=== PATIENT | female | born 1945 | race Caucasian/White ===

== ENCOUNTER 2018-01-09 09:34 | Emergency (ER) | payer MEDICARE ==
[~2018-01-09] VITALS: Ht 170.2 cm; Wt 98.0 kg
[2018-01-09 09:42] VITALS: BP 185/89; PULSE 59; RESP 19; TEMP 98.1; O2SAT 98
[2018-01-09] MEDS ORDERED: SODIUM CHLOR 0.9% 1000 ML INJ 1,000 ML IV SCH (09:54)
[2018-01-09] MEDS ORDERED: AMBI10TA PO (09:57)
[2018-01-09] MEDS ORDERED: TRAZ50TA12 PO (09:57)
[2018-01-09] MEDS ORDERED: ONDANSETRON HCL 4 MG/2 ML VIAL IVP ONE (10:00)
[2018-01-09] MEDS ORDERED: FAMOTIDINE 20 MG/2 ML VIAL IV PUSH ONE (10:00)
[2018-01-09] MEDS ORDERED: SODIUM CHLORIDE 0.9% FLUSH 10 ML FLUSH IV FLUSH PRN (10:00)
--- NOTE | 2018-01-09 10:03 | PD ---
HPI Chief Complaint: Cold / Flu Symptoms Time Seen by Provider: 09:45 Travel History International Travel<30 days: No Contact w/Intl Traveler<30days: No Traveled to known affect area: No History of Present Illness HPI 72-year-old female here from [place] with her since November, presents to the emergency department with 3 week history of generalized malaise , dry hacking cough, nausea, and intermittent vomiting. 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 Patient states the last time she had an endoscopy was approximately 1 year ago. Patient does not have her gallbladder or appendix. Patient states gastroparesis history, and history of pernicious anemia. Patient takes B12 shots, something to expedite stomach emptying, and frequent MiraLAX. Patient denies constipation or diarrhea with her current illness. Patient denies urinary symptoms. Patient denies chest pain or shortness of breath other than her cough. Patient states no significant fever but does feel clammy and has chills intermittently. Patient states it seemed to start with a viral illness which seemed to improve but now has worsened in the last week. Patient has generalized aches and pains but no specific point tenderness. She has no known drug allergies. PFSH Past Medical History Anemia: Yes Cancer: Yes (SKIN ) Hypertension: Yes ?: Not Past Surgical History Appendectomy: Yes Section: Yes (x2) Cholecystectomy: Yes Tonsillectomy: Yes Social History Alcohol Use: No Tobacco Use: No Substance Use: No Allergies-Medications (Allergen,Severity, Reaction): Coded Allergies: No Known Allergies (Unverified , 01/09/18) Reported Meds & Prescriptions Reported Meds & Active Scripts Active Reported Trazodone (Trazodone HCl) 50 Mg Tab 50 Mg PO HS Ambien (Zolpidem Tartrate) 10 Mg Tab 10 Mg PO HS PRN Review of Systems Except as stated in HPI: all other systems reviewed are Neg General / Constitutional: Positive: Chills, No: Fever Eyes: No: Visual changes HENT: No: Headaches Cardiovascular: No: Chest Pain or Discomfort, Palpitations, Irregular Rhythm, Tachycardia, Diaphoresis, Syncope, Dyspnea on exertion, Varicosities, Edema, Varicosities, Phlebitis, Claudication Respiratory: Positive: Cough, No: Shortness of Breath, Wheezing, Sneezing, Orthopnea, Hemoptysis, Night Sweats, Pleuritic Pain Gastrointestinal: Positive: Nausea, Vomiting, Loss of Appetite, No: Diarrhea, Abdominal Pain, Hematemesis, Hematochezia, Constipation, Changes in Bowel Habits , Indigestion, Dysphagia Genitourinary: No: Urgency, Frequency, Dysuria, Pelvic Pain, Flank Pain, Discharge Musculoskeletal: Positive: Myalgias, No: Arthralgias, Limited ROM, Pain Skin: No Rash Neurologic: No: Weakness Psychiatric: No: Depression Endocrine: No: Polydipsia Hematologic/Lymphatic: No: Easy Bruising Physical Exam Narrative GENERAL: Patient appears ill but not septic SKIN: Warm and mildly diaphoretic. Decreased pallor. Mild decreased turgor. HEAD: Atraumatic. Normocephalic. EYES: Pupils equal and round. No scleral icterus. No injection or drainage. ENT: No nasal bleeding or discharge. Mucous membranes pink and moist. Posterior pharynx is unremarkable. TMs are clear. Airways patent NECK: Trachea midline. Supple and nontender. CARDIOVASCULAR: Regular rate and rhythm. No murmurs gallops or rubs RESPIRATORY: No accessory muscle use. Course to auscultation. No wheezing rales or rhonchi. Breath sounds equal bilaterally. GASTROINTESTINAL: Abdomen soft, non-tender, nondistended. Hepatic and splenic margins not palpable. MUSCULOSKELETAL: Extremities without clubbing, cyanosis, or edema. No obvious deformities. NEUROLOGICAL: Awake and alert. No obvious cranial nerve deficits. Motor grossly within normal limits. Five out of 5 muscle strength in the arms and legs. Normal speech. PSYCHIATRIC: Appropriate mood and affect; insight and judgment normal. Data Data Last Documented VS Vital Signs Date Time Temp Pulse Resp B/P (MAP) Pulse Ox O2 Delivery O2 Flow Rate FiO2 01/09/18 10:09 97 Room Air 01/09/18 09:42 98.1 59 19 185/89 (121) Orders Orders Complete Blood Count With Diff (01/09/18 09:54) Comprehensive Metabolic Panel (01/09/18 09:54) Lipase (01/09/18 09:54) Lactic Acid (01/09/18 09:54) Prothrombin Time / Inr (Pt) (01/09/18:54) Act Partial Throm Time (Ptt) (01/09/18 09:54) Urinalysis - C+S If Indicated (01/09/18 09:54) Ct Abd/Pel W Iv Contrast(Rout) (01/09/18 09:54) Iv Access Insert/Monitor (01/09/18 09:54) Ecg Monitoring (01/09/18 09:54) Oximetry (01/09/18 09:54) Ondansetron Inj (Zofran Inj) (01/09/18 10:00) Sodium Chlor 0.9% 1000 Ml Inj (Ns 1000 M (01/09/18 09:54) Sodium Chloride 0.9% Flush (Ns Flush) (01/09/18 10:00) Electrocardiogram (01/09/18 09:54) Famotidine Inj (Pepcid Inj) (01/09/18 10:00) Thyroid Stimulating Hormone (01/09/18 09:54) Chest, Pa & Lat (01/09/18 10:36) Iohexol 350 Inj (Omnipaque 350 Inj) (01/09/18 11:22) Prednisone (Deltasone) (01/09/18 12:15) Albuterol-Ipratropium Neb (Duoneb Neb) (01/09/18 12:15) Azithromycin (Zithromax) (01/09/18 12:15) Ceftriaxone Inj (Rocephin Inj) (01/09/18 12:15) Azithromycin (Zithromax) (01/09/18 13:00) Labs Laboratory Tests Test 01/09/18 10:20 White Blood Count 7.8 TH/MM3 Red Blood Count 4.64 MIL/MM3 Hemoglobin 14.4 GM/DL Hematocrit 41.8 % Mean Corpuscular Volume 90.1 FL Mean Corpuscular Hemoglobin 31.1 PG Mean Corpuscular Hemoglobin Concent 34.5 % Red Cell Distribution Width 13.0 % Platelet Count 279 TH/MM3 Mean Platelet Volume 8.0 FL Neutrophils (%) (Auto) 54.3 % Lymphocytes (%) (Auto) 31.6 % Monocytes (%) (Auto) 9.8 % Eosinophils (%) (Auto) 4.0 % Basophils (%) (Auto) 0.3 % Neutrophils # (Auto) 4.2 TH/MM3 Lymphocytes # (Auto) 2.5 TH/MM3 Monocytes # (Auto) 0.8 TH/MM3 Eosinophils # (Auto) 0.3 TH/MM3 Basophils # (Auto) 0.0 TH/MM3 CBC Comment DIFF FINAL Differential Comment Prothrombin Time 9.7 SEC Prothromb Time International Ratio 1.0 RATIO Activated Partial Thromboplast Time 25.5 SEC Urine Color LIGHT-YELLOW Urine Turbidity CLEAR Urine pH 7.0 Urine Specific [place] 1.004 Urine Protein NEG mg/dL Urine Glucose (UA) NEG mg/dL Urine Ketones NEG mg/dL Urine Occult Blood NEG Urine Nitrite NEG Urine Bilirubin NEG Urine Urobilinogen LESS THAN 2.0 MG/DL Urine Leukocyte Esterase NEG Urine Squamous Epithelial Cells <1 /hpf Urine Bacteria RARE /hpf Microscopic Urinalysis Comment CULT NOT INDICATED Blood Urea Nitrogen 13 MG/DL Creatinine 0.84 MG/DL Random Glucose 97 MG/DL Total Protein 6.9 GM/DL Albumin 3.3 GM/DL Calcium Level 8.7 MG/DL Alkaline Phosphatase 112 U/L Aspartate Amino Transf (AST/SGOT) 24 U/L Alanine Aminotransferase (ALT/SGPT) 25 U/L Total Bilirubin 0.2 MG/DL Sodium Level 139 MEQ/L Potassium Level 4.3 MEQ/L Chloride Level 105 MEQ/L Carbon Dioxide Level 27.2 MEQ/L Anion Gap 7 MEQ/L Estimat Glomerular Filtration Rate 66 ML/MIN Lactic Acid Level 0.7 mmol/L Lipase 148 U/L Thyroid Stimulating Hormone 3rd Gen 7.180 uIU/ML [facility] Medical Decision Making Medical Screen Exam Complete: Yes Emergency Medical Condition: Yes Differential Diagnosis Pneumonia. Nausea and vomiting. Anemia. Cardiac syndrome. Ileus. Gastroparesis. Narrative Course Patient is medically stable at time of exam. Labs ordered including CBC, CMP, lactic acid, urinalysis, TSH. EKG and chest x-ray was ordered. Abdominal/pelvic CT is ordered with IV contrast. IV access is obtained the patient is given 1 L normal saline bolus, 4 mg Zofran IV, and 20 mg Pepcid IV EKG is performed showing sinus bradycardia without significant abnormality. CBC is unremarkable. CMP unremarkable except for TSH of 7.180. Coagulation studies unremarkable Urinalysis is normal. Chest x-ray is read as negative for acute process per radiologist. Due to the patient's distant smoking history do feel she is suffering from chronic bronchitis due to her chronic cough for the past 3 weeks. Patient is given DuoNeb 3, prednisone 40 mg p.o., and azithromycin 500 mg p.o. Patient is also given Rocephin [address] of the abdomen showed no acute disease per radiologist. Patient will be treated for chronic bronchitis/COPD flare. Patient was given azithromycin 5 mg p.o. now, as well as Rocephin 1000 mg IV. Patient will be continued on prednisone 20 mg daily for 7 days. Patient continued on azithromycin 500 mg daily for 3 days. Patient is given albuterol metered-dose inhaler. 2 puffs every 4-6 hours as needed cough and wheeze. Patient is notified of her elevated TSH, and should follow-up with her primary care physician upon return to [place]. Patient can return to emergency department with worsening symptoms as needed. Diagnosis Primary Impression: Chronic bronchitis Qualified Codes: J41.0 - Simple chronic bronchitis Referrals: Primary Care Physician Patient Instructions: Acute Bronchitis (ED), General Instructions Additional Instructions: CT of the abdomen showed no acute disease per radiologist. Patient will be treated for chronic bronchitis/COPD flare. Patient was given azithromycin 5 mg p.o. now, as well as Rocephin 1000 mg IV. Patient will be continued on prednisone 20 mg daily for 7 days. Patient continued on azithromycin 500 mg daily for 3 days. Patient is given albuterol metered-dose inhaler. 2 puffs every 4-6 hours as needed cough and wheeze. Patient is notified of her elevated TSH, and should follow-up with her primary care physician upon return to [place]. Patient can return to emergency department with worsening symptoms as needed. Med/Other Pt SpecificInfo: Prescription(s) given Disposition: 01 DISCHARGE HOME Condition: Stable Yvan Dent Jan 09, 2018 10:03
[2018-01-09 10:09] VITALS: O2SAT 97
[2018-01-09 10:42] LABS: AUTOMATED NEUTROPHIL # 4.2 TH/MM3 (1.8-7.7); BASOPHIL % 0.3 % (0.0-2.0); EOSINOPHIL # 0.3 TH/MM3 (0-0.4); HEMATOCRIT 41.8 % (35.0-46.0); HEMOGLOBIN 14.4 GM/DL (11.6-15.3); LYMPH % 31.6 % (9.0-44.0); LYMPHOCYTE # 2.5 TH/MM3 (1.0-4.8); MEAN CELL VOLUME 90.1 FL (80.0-100.0); MEAN CORPUSCULAR HEMOGLOBIN 31.1 PG (27.0-34.0); MEAN CORPUSCULAR HGB CONC 34.5 % (32.0-36.0); MONO % 9.8 % (0.0-8.0); MONOCYTE # 0.8 TH/MM3 (0-0.9); NEUT % 54.3 % (16.0-70.0); PLATELET COUNT 279 TH/MM3 (150-450); RED BLOOD COUNT 4.64 MIL/MM3 (4.00-5.30); WHITE BLOOD COUNT 7.8 TH/MM3 (4.0-11.0)
[2018-01-09 10:55] LABS: PROTHROMBIN TIME - PATIENT 9.7 SEC (9.8-11.6)
[2018-01-09 11:00] LABS: ALBUMIN 3.3 GM/DL (3.4-5.0); ALT (GPT) 25 U/L (10-53); AST (GOT) 24 U/L (15-37); BACTERIA, URINE RARE /hpf; BICARBONATE 27.2 MEQ/L (21.0-32.0); BILIRUBIN, URINE NEG (NEG); BLOOD UREA NITROGEN 13 MG/DL (7-18); BLOOD, URINE NEG (NEG); CALCIUM 8.7 MG/DL (8.5-10.1); CHLORIDE 105 MEQ/L (98-107); CREATININE 0.84 MG/DL (0.50-1.00); GLOMERULAR FILTRATION RATE 66 ML/MIN (>89); GLUCOSE,RANDOM 97 MG/DL (74-106); GLUCOSE,URINE NEG (NEG); KETONE, URINE NEG (NEG); NITRITE,URINE NEG (NEG); SODIUM (NA) 139 MEQ/L (136-145); SQUAMOUS EPITHELIAL CELL URINE <1 /hpf (0-5); URINE COLOR LIGHT-YELLOW (YELLW/STRAW); URINE LEUKOCYTE ESTERASE NEG (NEG)
[2018-01-09 11:09] LABS: ALKALINE PHOSPHATASE 112 U/L (45-117); TOTAL BILIRUBIN ADULT 0.2 MG/DL (0.2-1.0); TOTAL PROTEIN 6.9 GM/DL (6.4-8.2)
--- NOTE | 2018-01-09 11:18 | RADRPT ---
EXAM DATE/TIME: 01/09/2018 11:06 [facility] COMPARISON: No previous studies available for comparison. INDICATIONS : Cough and congestion for 3 weeks. MEDICAL HISTORY : Hypertension. SURGICAL HISTORY : None. ENCOUNTER: Initial ACUITY: 3 weeks PAIN SCORE: 0/10 LOCATION: Bilateral chest FINDINGS: PA and lateral views of the chest demonstrate the lungs to be symmetrically aerated without evidence of mass, infiltrate or effusion. The cardiomediastinal contours are unremarkable. Osseous structure s are intact. CONCLUSION: No acute disease. Magnus Easley MD on January 09, 2018 at 11:17 Board Certified Radiologist. This report was verified electronically.
[2018-01-09] MEDS ORDERED: IOHEXOL 350 MG/ML 10 ML VIAL (for RAD DIAG) IVCONTRAST ONE (11:22)
[2018-01-09] MEDS ORDERED: cefTRIAXone INJ 1,000 MG in SODIUM CHLORIDE 0.9% INJ 100 ML IV ONE (12:15)
[2018-01-09] MEDS ORDERED: predniSONE 20 MG TAB PO ONE (12:15)
[2018-01-09] MEDS ORDERED: AZITHROMYCIN 250 MG TAB PO SCH ×2 (12:15→13:00)
[2018-01-09] MEDS: RESP: ALBUTEROL 2.5 MG/IPRATROPIUM 0.5 MG NEB (SCH) INH ×2 (12:20→12:21)
--- NOTE | 2018-01-09 12:24 | RADRPT ---
EXAM DATE/TIME: 01/09/2018 11:18 [facility] COMPARISON: No previous studies available for comparison. INDICATIONS : Abdominal pain. Vomiting, body aches and headaches x 3 weeks. IV CONTRAST: 90 cc Omnipaque 350 (iohexol) IV ORAL CONTRAST: No oral contrast ingested. RADIATION DOSE: 19.43 CTDIvol (mGy) ; Patient body habitus MEDICAL HISTORY : Hypertension. SURGICAL HISTORY : Appendectomy. Cholecystectomy. section. ENCOUNTER: Initial ACUITY: 3 weeks PAIN SCALE: 7/10 LOCATION: Bilateral Epigastric Abdomen TECHNIQUE: Volumetric scanning of the abdomen and pelvis was performed. Using automated exposure control and ad justment of the mA and/or kV according to patient size, radiation dose was kept as low as reasonably achievable to obtain optimal diagnostic quality images. DICOM format image data is available electro nically for review and comparison. FINDINGS: LOWER LUNGS: The visualized lower lungs are clear. LIVER: Homogeneous density without lesion. There is no dilation of the biliary tree. No calcified gallston es. SPLEEN: Normal size without lesion. PANCREAS: Within normal limits. KIDNEYS: Normal in size and shape. There is no mass, stone or hydronephrosis. ADRENAL GLANDS: Within normal limits. VASCULAR: There is no aortic aneurysm. BOWEL/MESENTERY: The stomach, small bowel, and colon demonstrate no acute abnormality. There is no free intraperitone al air or fluid. ABDOMINAL WALL: Within normal limits. RETROPERITONEUM: There is no lymphadenopathy. BLADDER: No wall thickening or mass. REPRODUCTIVE: Within normal limits. INGUINAL: There is no lymphadenopathy or hernia. MUSCULOSKELETAL: Facet arthropathy. CONCLUSION: No acute disease. Sukhdeep Escobar MD on January 09, 2018 at 12:19 Board Certified Radiologist. This report was verified electronically.
[2018-01-09] MEDS ORDERED: PRED20 PO (12:36)
[2018-01-09] MEDS ORDERED: VENTAER INH (12:36)
[2018-01-09] MEDS ORDERED: AZIT500T2 PO (12:36)
--- NOTE | 2018-01-09 21:52 | EKG ---
Date Performed: 01/09/2018 Time Performed: 10:04:45 PTAGE: 72 years EKG: SINUS BRADYCARDIA BORDERLINE ECG NO PREVIOUS TRACING DOCTOR: Ivis Segal Interpretating Date/Time 01/09/2018 21:50:44
== END 2018-01-09 13:41 | disposition home or self-care (01) ==
LOC: NEPD 09:34
DX: J42 Unspecified chronic bronchitis (principal); R00.1 Bradycardia, unspecified; R11.2 Nausea with vomiting, unspecified; D51.0 Vitamin B12 deficiency anemia due to intrinsic factor deficiency; I10 Essential (primary) hypertension; Z79.899 Other long term (current) drug therapy; Z87.19 Personal history of other diseases of the digestive system
CPT/HCPCS: 71046; 74177; 80053; 81001; 83605; 83690; 84443; 85025; 85610; 85730; 93005; 94640; 94664; 96361; 96365; 96375; 99285; J0696; J2405; J7030; J7512; Q9967

== ENCOUNTER 2018-10-02 17:28 | Inpatient (IN) ==
[2018-10-02] MEDS ORDERED: Morphine Sulfate Inj 8 MG/ML Vial IM ONE (17:46)
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
[2018-10-02] MEDS ORDERED: Morphine Sulfate Inj 8 MG/ML Vial IV.PUSH ONE (18:48)
[2018-10-02] MEDS ORDERED: Tetanus/Diphtheria Toxoid Adult Vaccine Inj 0.5 ML Vial IM ONE (18:48)
[2018-10-02 19:13] LABS: Hematocrit 42.7 % (35.0-46.0); Hemoglobin 14.8 gm/dL (11.6-15.3); Mean Corpuscular HGB Conc 34.8 % (32.0-36.0); Mean Corpuscular Hemoglobin 32.1 pg (27.0-34.0); Mean Corpuscular Volume 92.4 fL (80.0-100.0); Mean Platelet Volume 7.8 fL (7.0-11.0); Platelet Count 242 th/mm3 (150-450); Red Blood Count 4.62 mil/mm3 (4.00-5.30); Red Cell Distribution Width 13.4 % (11.6-17.2); White Blood Count 8.2 th/mm3 (4.0-11.0)
[2018-10-02 19:24] LABS: Calcium 8.6 mg/dL (8.5-10.1); Carbon Dioxide 27.1 meq/L (21.0-32.0); Potassium 4.2 meq/L (3.5-5.1)
[2018-10-02] MEDS ORDERED: traZODone 50 MG Tablet PO ONE (21:30)
[2018-10-02] MEDS ORDERED: Pantoprazole Inj 40 MG Vial IV.PUSH ONE (21:30)
[2018-10-02] MEDS: Morphine Inj 4 MG/ML Vial IV.PUSH PRN (21:53)
[2018-10-02] MEDS ORDERED: Bisacodyl 10 MG Supp RECTAL PRN (22:44)
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
[2018-10-03] MEDS: Morphine Inj 4 MG/ML Vial IV.PUSH PRN ×4 (01:59→14:38)
[2018-10-03] MEDS: Acetaminophen 325 MG Tablet PO PRN (05:04)
[2018-10-03 05:38] LABS: Baso % (Auto) 0.2 % (0.0-2.0); Eos # (Auto) 0.2 th/mm3 (0.0-0.4); Eos % (Auto) 2.6 % (0.0-4.0); Hematocrit 42.5 % (35.0-46.0); Hemoglobin 14.4 gm/dL (11.6-15.3); Lymph # (Auto) 2.3 th/mm3 (1.0-4.8); Lymph % (Auto) 31.1 % (9.0-44.0); Mean Corpuscular HGB Conc 33.9 % (32.0-36.0); Mean Corpuscular Hemoglobin 31.6 pg (27.0-34.0); Mean Corpuscular Volume 93.4 fL (80.0-100.0); Mean Platelet Volume 8.3 fL (7.0-11.0); Mono # (Auto) 0.7 th/mm3 (0.0-0.9); Mono % (Auto) 9.4 % (0.0-8.0); Neut # (Auto) 4.3 th/mm3 (1.8-7.7); Neut % (Auto) 56.7 % (16.0-70.0); Platelet Count 237 th/mm3 (150-450); Red Blood Count 4.56 mil/mm3 (4.00-5.30); Red Cell Distribution Width 13.4 % (11.6-17.2); White Blood Count 7.5 th/mm3 (4.0-11.0)
[2018-10-03 06:00] LABS: Calcium 8.8 mg/dL (8.5-10.1); Carbon Dioxide 26.6 meq/L (21.0-32.0); Potassium 3.8 meq/L (3.5-5.1)
[2018-10-03 06:08] LABS: Activated Partial Thrombo Time 25.2 sec (23.4-31.7); Prothrombin Time 10.3 sec (9.8-11.6)
[2018-10-03] MEDS: Senna/Docusate Sodium 8.6/50 MG Tablet PO SCH ×2 (08:29→21:48)
[2018-10-03] MEDS: Pantoprazole Sodium 20 MG DR Tablet PO SCH (08:29)
[2018-10-03] MEDS: Sod Chloride 0.9% Inj 1,000 ML IV.CONT SCH ×3 (08:35→17:53)
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
[2018-10-03] MEDS: HYDROmorphone PF Inj 2 MG/ML Vial IV.PUSH PRN ×2 (17:50→21:48)
[2018-10-03] MEDS: traZODone 50 MG Tablet PO SCH (22:04)
[2018-10-04] MEDS: HYDROmorphone PF Inj 2 MG/ML Vial IV.PUSH PRN ×2 (03:11→06:46)
[2018-10-04] MEDS: Acetaminophen 325 MG Tablet PO PRN (03:24)
[2018-10-04 05:53] LABS: Baso % (Auto) 0.3 % (0.0-2.0); Eos # (Auto) 0.4 th/mm3 (0.0-0.4); Eos % (Auto) 4.8 % (0.0-4.0); Hematocrit 38.8 % (35.0-46.0); Hemoglobin 13.7 gm/dL (11.6-15.3); Lymph # (Auto) 2.3 th/mm3 (1.0-4.8); Lymph % (Auto) 28.8 % (9.0-44.0); Mean Corpuscular HGB Conc 35.3 % (32.0-36.0); Mean Corpuscular Hemoglobin 32.5 pg (27.0-34.0); Mean Corpuscular Volume 92.2 fL (80.0-100.0); Mean Platelet Volume 8.5 fL (7.0-11.0); Mono # (Auto) 0.9 th/mm3 (0.0-0.9); Mono % (Auto) 11.2 % (0.0-8.0); Neut # (Auto) 4.5 th/mm3 (1.8-7.7); Neut % (Auto) 54.9 % (16.0-70.0); Platelet Count 216 th/mm3 (150-450); Red Cell Distribution Width 13.2 % (11.6-17.2); White Blood Count 8.1 th/mm3 (4.0-11.0)
[2018-10-04 06:11] LABS: Calcium 8.3 mg/dL (8.5-10.1); Carbon Dioxide 25.8 meq/L (21.0-32.0); Potassium 3.7 meq/L (3.5-5.1)
[2018-10-04] MEDS: Sod Chloride 0.9% Inj 1,000 ML IV.CONT SCH ×2 (06:51→15:26)
[2018-10-04] MEDS: Senna/Docusate Sodium 8.6/50 MG Tablet PO SCH (08:54)
[2018-10-04] MEDS: Pantoprazole Sodium 20 MG DR Tablet PO SCH (08:54)
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
[2018-10-04] MEDS: traZODone 50 MG Tablet PO SCH ×2 (11:23→20:36)
[2018-10-04] MEDS: HYDROmorphone PF Inj 1 MG/ML Ampul IV.PUSH PRN ×2 (11:23→16:20)
[2018-10-04] MEDS: Enoxaparin Inj 30 MG/0.3 ML Syringe SQ SCH (11:24)
[2018-10-05] MEDS: HYDROmorphone PF Inj 1 MG/ML Ampul IV.PUSH PRN ×2 (02:45→08:56)
[2018-10-05] MEDS: Senna/Docusate Sodium 8.6/50 MG Tablet PO SCH ×3 (06:24→20:50)
[2018-10-05] MEDS: Sod Chloride 0.9% Inj 1,000 ML IV.CONT SCH ×2 (06:26→12:35)
[2018-10-05] MEDS: traZODone 50 MG Tablet PO SCH ×2 (08:53→20:50)
[2018-10-05] MEDS: Pantoprazole Sodium 20 MG DR Tablet PO SCH (08:53)
[2018-10-05] MEDS: Enoxaparin Inj 30 MG/0.3 ML Syringe SQ SCH ×2 (08:54→12:31)
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
[2018-10-05 23:19] LABS: Bilirubin,Urine Negative (Negative); Clarity,Urine Hazy (Clear); Color,Urine Yellow (Yellw/Straw); Glucose,Urine (UA) Negative (Negative); Leukocyte Esterase,Urine Negative (Negative); Mucus,Urine Few /lpf (Occasional); Nitrite,Urine Negative (Negative); Specific Gravity,Urine 1.011 (1.002-1.035); Squamous Epithelial Cell,Urine 1 /hpf (0-5)
[2018-10-06] MEDS: Sod Chloride 0.9% Inj 1,000 ML IV.CONT SCH (02:41)
[2018-10-06] MEDS: Senna/Docusate Sodium 8.6/50 MG Tablet PO SCH ×2 (09:21→20:53)
[2018-10-06] MEDS: Pantoprazole Sodium 20 MG DR Tablet PO SCH (09:22)
[2018-10-06] MEDS: Enoxaparin Inj 40 MG/0.4 ML Syringe SQ SCH (09:22)
[2018-10-06 09:39] LABS: Baso % (Auto) 0.2 % (0.0-2.0); Eos # (Auto) 0.3 th/mm3 (0.0-0.4); Eos % (Auto) 4.7 % (0.0-4.0); Hematocrit 38.7 % (35.0-46.0); Hemoglobin 13.1 gm/dL (11.6-15.3); Lymph # (Auto) 1.1 th/mm3 (1.0-4.8); Lymph % (Auto) 18.4 % (9.0-44.0); Mean Corpuscular HGB Conc 33.8 % (32.0-36.0); Mean Corpuscular Hemoglobin 31.7 pg (27.0-34.0); Mean Corpuscular Volume 93.8 fL (80.0-100.0); Mean Platelet Volume 8.1 fL (7.0-11.0); Mono # (Auto) 0.6 th/mm3 (0.0-0.9); Mono % (Auto) 10.5 % (0.0-8.0); Neut % (Auto) 66.2 % (16.0-70.0); Platelet Count 219 th/mm3 (150-450); Red Blood Count 4.12 mil/mm3 (4.00-5.30); Red Cell Distribution Width 13.3 % (11.6-17.2)
[2018-10-06 09:52] LABS: Calcium 8.3 mg/dL (8.5-10.1); Carbon Dioxide 28.8 meq/L (21.0-32.0); Potassium 3.4 meq/L (3.5-5.1)
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
[2018-10-06] MEDS: Sucralfate 1 GM Tablet PO SCH ×2 (12:15→17:12)
[2018-10-06] MEDS: HYDROmorphone PF Inj 1 MG/ML Ampul IV.PUSH PRN (13:14)
[2018-10-06] MEDS: traZODone 50 MG Tablet PO SCH (20:53)
[2018-10-07] MEDS: Pantoprazole Sodium 20 MG DR Tablet PO SCH (08:13)
[2018-10-07] MEDS: Sucralfate 1 GM Tablet PO SCH ×3 (08:13→16:29)
[2018-10-07] MEDS: Senna/Docusate Sodium 8.6/50 MG Tablet PO SCH ×2 (08:13→20:03)
[2018-10-07] MEDS: Enoxaparin Inj 40 MG/0.4 ML Syringe SQ SCH (08:14)
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
--- NOTE | 2018-10-07 12:23 | XR ---
EXAM DATE: 10/07/2018 12:05 PM EST AGE/SEX: 73 years / Female INDICATIONS: Cough. CLINICAL DATA: This is the patient's initial encounter. Patient reports that signs and symptoms have been present for 4 - 6 days and indicates a pain score of 0/10. MEDICAL/SURGICAL HISTORY: None. None. COMPARISON: [facility], XR CHEST PA AND LAT, 09/20/2018. . FINDINGS: A single AP view of the chest demonstrates the lungs to be symmetrically aerated without evidence of mass, infiltrate or effusion. The cardiomediastinal contours are unremarkable. Osseous structures a re intact. CONCLUSION: No acute abnormality. Electronically signed by: Cleveland Marlow MD 10/07/2018 12:22 PM EST
[2018-10-07 14:44] LABS: Baso % (Auto) 0.3 % (0.0-2.0); Eos # (Auto) 0.3 th/mm3 (0.0-0.4); Eos % (Auto) 4.9 % (0.0-4.0); Hematocrit 37.2 % (35.0-46.0); Hemoglobin 13.2 gm/dL (11.6-15.3); Lymph % (Auto) 29.2 % (9.0-44.0); Mean Corpuscular HGB Conc 35.6 % (32.0-36.0); Mean Corpuscular Hemoglobin 32.8 pg (27.0-34.0); Mean Corpuscular Volume 92.2 fL (80.0-100.0); Mean Platelet Volume 7.6 fL (7.0-11.0); Mono # (Auto) 0.7 th/mm3 (0.0-0.9); Mono % (Auto) 10.8 % (0.0-8.0); Neut # (Auto) 3.7 th/mm3 (1.8-7.7); Neut % (Auto) 54.8 % (16.0-70.0); Platelet Count 230 th/mm3 (150-450); Red Blood Count 4.03 mil/mm3 (4.00-5.30); Red Cell Distribution Width 13.3 % (11.6-17.2); White Blood Count 6.8 th/mm3 (4.0-11.0)
[2018-10-07] MEDS: traZODone 50 MG Tablet PO SCH (20:02)
[2018-10-07] MEDS: guaiFENesin 600 MG ER Tablet PO SCH (20:02)
[2018-10-08] MEDS: guaiFENesin 600 MG ER Tablet PO SCH ×2 (08:53→21:02)
[2018-10-08] MEDS: Senna/Docusate Sodium 8.6/50 MG Tablet PO SCH ×2 (08:54→21:03)
[2018-10-08] MEDS: Enoxaparin Inj 40 MG/0.4 ML Syringe SQ SCH (08:54)
[2018-10-08] MEDS: Pantoprazole Sodium 20 MG DR Tablet PO SCH (08:54)
[2018-10-08] MEDS: Sucralfate 1 GM Tablet PO SCH ×2 (08:54→16:09)
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
[2018-10-08] MEDS: traZODone 50 MG Tablet PO SCH (21:02)
[2018-10-09] MEDS: Sucralfate 1 GM Tablet PO SCH ×2 (08:37→17:14)
[2018-10-09] MEDS: guaiFENesin 600 MG ER Tablet PO SCH ×2 (08:37→21:05)
[2018-10-09] MEDS: Pantoprazole Sodium 20 MG DR Tablet PO SCH (08:37)
[2018-10-09] MEDS: Senna/Docusate Sodium 8.6/50 MG Tablet PO SCH ×2 (08:37→21:05)
[2018-10-09] MEDS: Enoxaparin Inj 40 MG/0.4 ML Syringe SQ SCH (08:37)
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
--- NOTE | 2018-10-09 10:50 | P.DCO ---
- Physical Therapy Order: Evaluate and treat, Improve ambulation, Strength and gait training - Case Management Consult Case Management Consult-Home Health: Yes - Certification I have seen patient Carrie Buchanan on 10/09/18. My clinical findings support the need for the requested home health care services because: Limited mobility due to disease progression I certify that my clinical findings support that this patient is homebound because: Unsteady gait/balance
[2018-10-09] MEDS: traZODone 50 MG Tablet PO SCH (21:05)
[2018-10-09] MEDS: Benzonatate 100 MG Capsule PO PRN (21:37)
[2018-10-10] MEDS: Benzonatate 100 MG Capsule PO PRN (08:03)
[2018-10-10] MEDS: guaiFENesin 600 MG ER Tablet PO SCH (08:03)
[2018-10-10] MEDS: Pantoprazole Sodium 20 MG DR Tablet PO SCH (08:04)
[2018-10-10] MEDS: Senna/Docusate Sodium 8.6/50 MG Tablet PO SCH (08:04)
[2018-10-10] MEDS: Enoxaparin Inj 40 MG/0.4 ML Syringe SQ SCH (08:05)
[2018-10-10] MEDS: Sucralfate 1 GM Tablet PO SCH (08:05)
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
== END 2018-10-10 14:03 ==
LOC: NEPD 17:28 → NEDA 17:28 → N06 22:55
PROVIDERS: ADMIT Hospitalist; ATTEND Hospitalist